=== PATIENT | male | born 1975 | race Caucasian/White ===

== ENCOUNTER 2024-08-26 01:31 | Day surgery (SDC) | payer OTHER, SELFPAY ==
--- NOTE | 2024-08-01 08:55 | SUR.PREOP ---
Pt called to change his arrival time due to the provider needing to go a meeting in the am. Pt voiced understanding and was ok with the change in arrival.
[2024-08-14 08:55] VITALS: BMI 28.5
[2024-08-26 08:26] VITALS: BP 120/79; PULSE 73; RESP 16; TEMP 36.4; O2SAT 97
[2024-08-26] MEDS: LACTATED RINGERS 1,000 ML 150 ML IV CONT (08:35)
--- NOTE | 2024-08-26 09:06 | WPDANESEPPF ---
Anes - Initial Pre Proc Eval Procedure: Operation Date: 08/26/24 09:30 Proposed Procedures p Screening Colonoscopy - Celso Pat DO Date/Time: 08/26/24 09:06 Surgeon: Celso Pat DO Pre Op Diagnosis: Screening for malignant neoplasm of colon Patient Data Age: 48 Gender: M Height: 1.83 m Weight: 96.6 kg Last Vital Signs Temp 36.4 C L 08/26/24 08:26 Pulse 73 08/26/24 08:26 Resp 16 08/26/24 08:26 BP 120/79 08/26/24 08:26 Pulse Ox 97 08/26/24 08:26 O2 Del Method Room Air 08/26/24 08:26 Allergies Allergy/AdvReac Type Severity Reaction Status Date / Time No Known Allergies Allergy Verified 08/26/24 08:25 Home Medications ?Medication ?Instructions ?Recorded ?Confirmed ?Type amlodipine 5 mg tablet 5 mg PO DAILY 08/14/24 08/26/24 History Patient hx anesthesia problems: none Family hx anesthesia problems: none Results Review: All pre-operative results and documents have been reviewed as part of the pre-operative evaluation. [facility] Past Medical History Medical History (Updated 08/26/24 @ 09:06 by Bassam Moncada MD) HTN (hypertension) Overweight Surgical History Surgical History (Updated 08/26/24 @ 09:09 by Bassam Moncada MD) H/O cardiac radiofrequency ablation H/O adenoidectomy Social History Social History Smoking status: Never smoker Alcohol intake: never Substance use: never Substance use type: does not use Living arrangements: with family Spiritual care concerns: No Anes - Eval Final PreProcedure Day of Procedure 08/26/24 09:06 Patient weight: overweight Heart: regular rate and rhythm Lungs: clear to auscultation Airway: Mallampati scale class II Neurological: alert and oriented Last oral intake: >/= 8 hours ASA classification: II Emergent: no Anesthetic plan: proceed Anesthesia type and monitoring: general GIVS and standard monitoring Results Review: All pre-operative results and documents have been reviewed as part of the pre-operative evaluation. Informed Consent: The patient's anesthetic plan and its attendant risks and benefits were discussed with the patient/family/POA. Questions were solicited and answers provided to the satisfaction of the patient/family/POA.
--- NOTE | 2024-08-26 09:42 | PM.IMHP ---
H&P: HPI History of Present Illness Date/Time: 08/26/24 09:42 Chief Complaint: screening for colorectal cancer Narrative: this is a 48-year-old man who presents for his 1st colonoscopy. He denies any family history of colon cancer. He denies any hematochezia or melena. Review of Systems Review of Systems: All systems reviewed & are unremarkable except as noted in HPI and below Constitutional: Constitutional: Denies chills, Denies fever(s), Denies headache(s) and Denies weight loss Eyes: Eyes: Denies change in vision ENT: Denies dizziness, Denies headache(s), Denies neck mass and Denies throat swelling Cardiovascular: Cardiovascular: Denies chest pain, Denies lightheadedness and Denies dyspnea Respiratory: Respiratory: Denies cough, Denies dyspnea and Denies wheezing Gastrointestinal: Gastrointestinal: Denies abdominal pain, Denies change in bowel habits, Denies nausea and Denies vomiting Genitourinary: Genitourinary: Denies hematuria and Denies dysuria Musculoskeletal: Musculoskeletal: Reports as per HPI Integumentary/Breasts: Skin/Breast: Reports as per HPI Neurologic: Denies dizziness and Denies headache(s) Allergic/Immunologic: Allergic/Immunologic: Denies throat swelling and Denies wheezing PMF Past Medical History Medical History (Updated 08/26/24 @ 09:42 by Celso Pat DO) HTN (hypertension) Overweight Surgical History Surgical History (Updated 08/26/24 @ 09:09 by Bassam Moncada MD) H/O cardiac radiofrequency ablation H/O adenoidectomy Social History Social History Smoking status: Never smoker Alcohol intake: never Substance use: never Substance use type: does not use Living arrangements: with family Spiritual care concerns: No Meds Home Medications and Allergies Home Medications ?Medication ?Instructions ?Recorded ?Confirmed ?Type amlodipine 5 mg tablet 5 mg PO DAILY 08/14/24 08/26/24 History Allergies Allergy/AdvReac Type Severity Reaction Status Date / Time No Known Allergies Allergy Verified 08/26/24 08:25 Vital Signs Vital Signs - 24 hr 08/26/24 08:26 Temperature 97.5 F L Pulse Rate 73 Respiratory Rate 16 Blood Pressure 120/79 Pulse Oximetry 97 Oxygen Delivery Room Air Exam Const: General: no acute distress and alert Orientation/consciousness: patient oriented x3 HENMT: Head: normocephalic and atraumatic Ears: hearing grossly normal bilaterally Face/Nose/Sinus: Normal nares present Mouth: Yes Normal oral and palatal mucosa present Eyes: Periorbital: periorbital findings normal Sclera: sclerae normal EOM: EOMs intact bilaterally Neck: Neck: normal visual inspection, no lymphadenopathy and trachea midline Chest: Chest palpation & inspection: normal inspection of the chest Resp: Effort & Inspection: normal respiratory effort Auscultation: clear to auscultation bilaterally Cardio: Jugular venous distension: no JVD Rate: regular rate Rhythm: regular rhythm Heart sounds: S1 normal heart sound present and S2 normal heart sound present Peripheral pulses: Peripheral pulses 2+ throughout GI: Inspection: normal to inspection GI Palp: Yes Soft to palpation, No Tenderness to palpation present (GI), No Guarding due to palpation present (GI) and No Rebound tenderness present Percussion: Yes normal to percussion Auscultation: normal bowel sounds : General: Yes no CVA tenderness Back/Spine/Pelvis: Back: no CVA tenderness Neuro: General: patient oriented x3, no focal motor deficits and CN's II-XI intact bilaterally Cognition (Neuro): normal cognition Speech: normal speech Motor exam (neuro): 5/5 motor strength present throughout Extrem: General: capillary refill normal and no clubbing, cyanosis or edema Assessment and Plan Assessment and plan (1) Screening for colorectal cancer: Code(s): Z12.11 - Encounter for screening for malignant neoplasm of colon; Z12.12 - Encounter for screening for malignant neoplasm of rectum Status: Acute Assessment and Plan: I have recommended colonoscopy. I have discussed the procedure, risks, benefits, and alternatives. Questions were answered. Patient is agreeable to proceed.
--- NOTE | 2024-08-26 10:05 | S_PTH ---
PATIENT: Bassam Perez LOC: [facility] Kate#:[id number] AGE/SX: 48/M ROOM: RE08/26/[address]: Celso Pat DO : 1975 BED: DIS: 08/26/2024 SPEC #: [id number] RECD: 08/26/24 14:11 STATUS: SOM RE[place] #: [id number] MARILEE: 08/26/24 10:[address]: Celso Pat DEPT: [facility] Surgical RECD BY: Althea Lees ENTERED: 08/26/24 14:11 SP TYPE: Surgical OTHR DR: Miriam Stevens, PAGinger Tissues: A - Rectal Polyp Procedures: Hematoxylin and Eosin Stain Gross and Microscopic Level 4
[2024-08-26 10:09] VITALS: BP 120/68; PULSE 73; RESP 16; O2SAT 96
[2024-08-26 10:19] VITALS: BP 114/67; PULSE 62; RESP 16; O2SAT 100
[2024-08-26 10:29] VITALS: BP 141/85; PULSE 61; RESP 16; O2SAT 98
== END 2024-08-26 10:40 | disposition home or self-care (01) ==
PROVIDERS: PCP Physician Assistant; Visit Provider Surgery
PROC: 0DJD8ZZ Inspection of Lower Intestinal Tract, Via Natural or Artificial Opening Endoscopic (ICD-10-PCS; CPT 45378; principal; 2024-08-26 09:30)
DX: Z12.11 Encounter for screening for malignant neoplasm of colon (principal); D12.8 Benign neoplasm of rectum
CPT/HCPCS: 45380; 88305; J2003; J2704; J7120